=== PATIENT | male | born 1990 | race Caucasian/White ===

== ENCOUNTER 2024-07-26 17:01 | Emergency (ER) | payer MEDICAID ==
[~2024-07-26] VITALS: Ht 167.6 cm; Wt 82.0 kg
[2024-07-26 17:09] VITALS: O2SAT 98
[2024-07-26 17:21] VITALS: BP 120/76; PULSE 76; RESP 14; TEMP 36.7; O2SAT 99
[2024-07-26] MEDS ORDERED: ACET-2708 MT (19:13)
[2024-07-26] MEDS: ACETAMINOPHEN 500MG TABLET PO ONE (19:28)
== END 2024-07-26 19:32 | disposition home or self-care (01) ==
LOC: ER 17:01
DX: R51.9 Headache, unspecified (principal)
CPT/HCPCS: 99284